=== PATIENT | male | born 1960 | race Caucasian/White ===

== ENCOUNTER 2024-03-12 04:02 | Day surgery (SDC) | payer OTHER ==
[~2024-03-12] VITALS: Ht 188 cm; Wt 95.2 kg
[2024-03-12] VITALS (200 sets, daily range): BP systolic 91–166; BP diastolic 54–93
[2024-03-12] MEDS ORDERED: ALBUTEROL SULFATE 2.5 MG VIAL IN PRN (07:30)
[2024-03-12] MEDS ORDERED: PANTOPRAZOLE SODIUM Sesquihydr 40 MG/TAB PO PRN (07:30)
[2024-03-12] MEDS ORDERED: LACTATED RINGER'S 1,000 ML IV PRN ×3 (07:30→19:00)
[2024-03-12] MEDS ORDERED: FAMOTIDINE 20 MG/TAB PO PRN (07:30)
[2024-03-12] MEDS ORDERED: diazePAM 5 MG/TAB PO PRN ×2 (07:30→08:30)
[2024-03-12] MEDS ORDERED: SCOPOLAMINE 1.5 MG DIS TD PRN (07:30)
[2024-03-12] MEDS ORDERED: cloNIDine HCL 0.1 MG/TAB PO PRN (07:30)
[2024-03-12] MEDS ORDERED: CYANOCOBALAMIN 500 MCG/TAB ( B12) PO PRN (07:30)
[2024-03-12] MEDS ORDERED: ASCORBIC ACID 4,000 MG in SODIUM CHLORIDE 0.9% 1,000 ML IV SCH (08:00)
--- NOTE | 2024-03-12 08:55 | NUR ---
Patient arrived to the ANR suite, identification and demographics confirmed. Patient to room 10, AAO and ambulatory vitals obtained, ID/allergy/fall bands placed, changed into hospital gown, procedure and timeline explained. All questions answered, patient presents no concerns at this time. Dr. Snyder telephoned with patient intake information including usage, dose, last dose/time taken and initial vital signs. Patient history and allergies reviewed with MD. Orders received for 10 mg PO Valium and 0.2 mg PO Clonidine now. Will reassess per protocol in 1.5 hours and update MD with assessment and vitals.
[2024-03-12] MEDS ORDERED: ATORVASTATIN CALCIUM 40 MG/TAB PO SCH (10:00)
[2024-03-12] MEDS ORDERED: METOPROLOL SUCCINATE 50 MG/TAB PO SCH (10:00)
[2024-03-12 10:01] LABS: BASO% 0.4 % (0-3); EOS% 1.9 % (0-8); HEMATOCRIT 41.8 % (39.0-50.0); HEMOGLOBIN 13.6 g/dl (14.0-18.0); MEAN CELL VOLUME 94.6 fL CALC (80.0-100.0); MEAN CORPUSCULAR HGB 30.8 pG CALC (26.0-32.0); MEAN CORPUSCULAR HGB CONC 32.5 g/dL CAL (32.0-36.0); MONO% 12.4 % (2-13); NEUT# 3.09 thou/uL (1.82-7.42); NEUT% 65.3 % (42-76); RED BLOOD COUNT 4.42 mill/uL (4.70-6.10); RED CELL DISTRI WIDTH 13.1 % (11.5-15.5)
[2024-03-12] MEDS ORDERED: BAYER ASPIRIN E81 MG PO (10:12)
[2024-03-12] MEDS ORDERED: TOPROL XL50 MG PO (10:13)
[2024-03-12] MEDS ORDERED: OMEPRAZOLE DR40 MG PO (10:13)
[2024-03-12] MEDS ORDERED: ATORVASTATIN CA40 MG PO (10:14)
[2024-03-12] MEDS ORDERED: ISOSORB MONO30 MG PO (10:15)
[2024-03-12 10:22] LABS: ALBUMIN 3.9 g/dL (3.2-5.0); BILIRUBIN, TOTAL 0.5 mg/dL (0.2-1.3); CREATININE 0.9 mg/dL (0.7-1.3); POTASSIUM 4.2 mmol/l (3.5-5.1); TOTAL PROTEIN 6.4 g/dL (6.3-8.2)
[2024-03-12] MEDS ORDERED: ISOSORBIDE MONONITRATE 30 MG TAB PO SCH (10:30)
[2024-03-12] MEDS ORDERED: PROPOFOL 10 MG/ML 100ML VIAL IV PRN (10:40)
[2024-03-12] MEDS ORDERED: POTASSIUM CHLORIDE 20 MEQ/100 ML BAG IV PRN (10:40)
[2024-03-12] MEDS ORDERED: ROCURONIUM BROMIDE 10 MG/ML 5ML VIAL IV PRN (10:40)
[2024-03-12] MEDS ORDERED: MAGNESIUM SULFATE HEPTAHYDRATE 100 ML IV PRN (10:40)
[2024-03-12] MEDS ORDERED: cloNIDine HCL 0.1 MG/TAB VT PRN (10:40)
[2024-03-12] MEDS ORDERED: STERILE WATER FOR IRRIGATION 1,000 ML BTL IR PRN (10:40)
[2024-03-12] MEDS ORDERED: PROPOFOL 100 ML IV PRN (10:40)
[2024-03-12] MEDS ORDERED: SUCCINYLCHOLINE CHLORIDE 20 MG/ML 10ML VIAL IV PRN (10:40)
[2024-03-12] MEDS ORDERED: MIDAZOLAM HCL 2 MG/2 ML VIAL IV PRN (10:40)
[2024-03-12] MEDS ORDERED: ONDANSETRON HCl 4 MG/2 ML SDV IV PRN ×3 (10:40→19:00)
[2024-03-12] MEDS ORDERED: OCTREOTIDE ACETATE 100 MCG/VIAL SDV SC PRN (10:40)
[2024-03-12] MEDS ORDERED: THIAMINE HCL 100 MG/ML 2ML VIAL IV PRN (10:40)
[2024-03-12] MEDS ORDERED: LIDOCAINE HCL 1% (10MG/ML) 100 MG/10 ML MDV VT PRN ×2 (10:40)
[2024-03-12] MEDS ORDERED: diazePAM 5 MG/TAB VT PRN (10:40)
[2024-03-12] MEDS ORDERED: DEXAMETHASONE SODIUM PHOSPHATE PF 10 MG/ML SDV IV PRN ×2 (10:40→19:00)
[2024-03-12] MEDS ORDERED: NALTREXONE HCL 50 MG/TAB VT PRN (10:40)
[2024-03-12] MEDS ORDERED: DiphenhydrAMINE HCL 50 MG/ML SDV IV PRN (10:40)
[2024-03-12] MEDS ORDERED: LIDOCAINE HCL 1% (10MG/ML) 100 MG/10 ML MDV IV PRN (10:40)
[2024-03-12] MEDS ORDERED: cloNIDine HYDROCHLORIDE 100 MCG/ML 10 ML INJ IV PRN (10:40)
[2024-03-12] MEDS ORDERED: PHENYLEPHRINE HCL 10 MG/ML VIAL ONE (10:49)
[2024-03-12] MEDS ORDERED: SODIUM CHLORIDE 0.9% 250 ML IV ONE (10:49)
--- NOTE | 2024-03-12 12:10 | NUR ---
Induction Note Patient to ANR procedure room. Time out performed at 1139. Patient placed on monitors, Halima hugger, bilateral wrist restraints applied for ET tube protection. Versed 5mg given IV push at 1140 Tourniquet applied to right arm Lidocaine 100mg given [id number] IV push followed by Rocoronium 10mg at 1144 IV push and held for 90 seconds. Propofol bolus of 120mg given at 1145 IV push. Succinylcholine 80mg given IV push at 1146. Smooth intubation with 7.5 ETT. Positive CO2. Positive Auscultation for air exchange. Patient placed on ventilator for spontaneous ventilation. Placed on Propofol IV drip at 1147. OG inserted. Positive air on auscultation. Positive gastric content. Stomach washed at this time. Naltrexone 50mg given via OG tube with Clonidine 0.1 mg given via OG Tube. OG clamped for 45 minutes. Will monitor patient for symptoms of withdrawal and adjust propfol accordingly.
--- NOTE | 2024-03-12 12:55 | NUR ---
OG open note OG open at this time. Gastric content draining into drainage bag. OG to drain for 45 minutes. Propofol will be titrated down based on patient.
[2024-03-12] MEDS ORDERED: METOPROLOL TARTRATE 5 MG/5 ML VIAL IV ONE (13:07)
--- NOTE | 2024-03-12 13:45 | NUR ---
OG close note Stomach washed at this time. Naltrexone 50 mg with Clonidine 0.2 mg via OG tube. OG will be clamped for 45 minutes.
--- NOTE | 2024-03-12 15:15 | NUR ---
OG close note Stomach washed at this time. Naltrexone 50 mg with Clonidine 0.2 mg via OG tube. OG will be clamped for 45 minutes.
--- NOTE | 2024-03-12 17:30 | NUR ---
OG close note Stomach washed at this time. Naltrexone 0 mg with Clonidine 0 mg via OG tube. OG will be clamped for 45 minutes.
--- NOTE | 2024-03-12 17:59 | NUR ---
Extubation note Closing medications given Benadryl 50mg IV push, Decadron 10mg IV push,Magnesium 4 grams IV, Zofran 8mg IV push, Octreotide 100mcg SC. Stomach washed out prior to extubation. Suctioned gastric content. OG removed. Patient extubated. Propofol Discontinued. Wrist restraints removed. Halima hugger Removed. See ANR Moderate sedate recovery record for further notes and assessment.
[2024-03-12] MEDS ORDERED: CLONIDINE0.1 MG PO (18:13)
[2024-03-12] MEDS ORDERED: NALTREXONE50 MG PO (18:13)
[2024-03-12] MEDS ORDERED: KLONOPIN2 MG PO (18:14)
--- NOTE | 2024-03-12 18:39 | NUR ---
Patient transferred to medical-surgical unit room 284. Report given to floor nurse at bedside. Head to toe assessment, treatment, medications, I/O, IV access reviewed with nurse. All questions answered. IVF to continue at 100 ml/hr, no adventitious breath sounds. Safety precautions in place, bed locked and in lowest position, call light in reach. Handoff of care at the time this note.
[2024-03-12] MEDS ORDERED: PROMETHAZINE HCL 25 MG in SODIUM CHLORIDE 0.9% 50 ML IV PRN (19:00)
[2024-03-12] MEDS ORDERED: HALOPERIDOL LACTATE 5 MG/ML SDV IV PRN (19:00)
[2024-03-12] MEDS ORDERED: ACETAMINOPHEN 1,000 MG/100 ML VIAL IV PRN (19:00)
[2024-03-12] MEDS ORDERED: LORazepam 2 MG/ML IV PRN ×2 (19:00)
[2024-03-12] MEDS ORDERED: PROMETHAZINE HCL 12.5 MG in SODIUM CHLORIDE 0.9% 50 ML IV PRN (19:00)
[2024-03-12] MEDS ORDERED: KETOROLAC TROMETHAMINE 30 MG/ML SDV IV PRN (19:00)
[2024-03-12] MEDS ORDERED: ACETAMINOPHEN 500 MG TAB PO PRN (19:00)
[2024-03-12] MEDS ORDERED: PATIENT' OWN MED CONTROLLED 1 EA DOSE IV PRN (21:00)
--- NOTE | 2024-03-12 22:06 | NUR ---
PT HAD ANOTHER EPISODE OF INC BM. STREET SUPERINTENDENT ASSISTED BOTH VISUAL BASIC DEVELOPER'S WITH CLEANING AND CHANGING PT, PT IS VERY DISORIENTED, WILL NOT FOLLOW COMMANDS, AND BECAME COMBATIVE AND STARTED HOLLERING UNCOMPREHENSIVE WORDS. ONCE PT WAS CLEANED AND REPOSITONED INTO BED, STREET SUPERINTENDENT ADMINISTERED MEDICATION PER EMAR FOR AGITATION. PT LAYING IN BED SEMI FOWELRS, NASAL CANNULA IN PLACE. BED ALARM ON AND SAFETY PRECAUTIONS IN PLACE.
[2024-03-12] MEDS ORDERED: cloNIDine HCL 0.1 MG/TAB PO SCH (23:00)
[2024-03-12] MEDS ORDERED: clonazePAM 1 MG/TAB PO PRN (23:00)
--- NOTE | 2024-03-13 00:31 | NUR ---
PT WAS UNABLE TO TAKE @2300 MEDICATIONS PER EMAR. UNABLE TO AROUSE PT AND ORIENT TO CAPACITY OF FOLLOWING COMMANDS. PT UPPER LUNG SOUNDS CRACKLE AND WET SOUNDING. PT ON 3L O2 NC AND DESATTING TO <85%. RESPIRATORY THERAPY WAS NOTIFIED, DID COME AND ASSESS PT. ORAL SUCTION PERFORMED TO HELP CLEAR SECRETIONS AND PT PLACED ON HIGH FLOW NASAL CANNULA AT 5L O2 PER RESIRATORY. PT WAS ABLE TO AROUSE AFTER ORAL SUCTION BUT WOULD NOT OPEN EYES OR FOLLOW COMMANDS, STILL PRESENTED VERY DISORIENTED. ENCOUERAGED TO DEEP COUGH BUT UNABLE TO AT THIS TIME. REPOSITIONED PT HIGH FOWLERS IN BED. IV SITE INTACT WITH FLUIDS RUNNING. BED ALARM ON AND SAFETY PRECAUTIONS IN PLACE.
[2024-03-13 03:59] VITALS: BP 162/91
[2024-03-13] MEDS ORDERED: cloNIDine HCL 0.1 MG/TAB PO PRN ×2 (04:00→16:05)
[2024-03-13] MEDS ORDERED: clonazePAM 1 MG/TAB PO PRN ×3 (04:00→16:05)
[2024-03-13] MEDS ORDERED: NALTREXONE HCL 50 MG/TAB PO SCH (04:00)
--- NOTE | 2024-03-13 04:15 | NUR ---
PT MORE ALERT AND ABLE TO FOLLOW COMMANDS. PT ABLE TO GIVE VERBAL RESPONSES WITH GARBLED SPEECH. 0400 MEDICATIONS ADMINISTERED PER EMAR AND PT WAS ABLE TO TAKE THEM WITH NO PROBLEM. PT C/O BACK PAIN AND NAUSEA. MEDICATION ADMINSITERED PER EMAR FOR PAIN AND NAUSEA. REPOSITIONED PT IN BED. VSS. NO S/S OF DISTRESS. BED ALARM ON AND SAFEFTY PRECAUTIONS IN PLACE.
[2024-03-13 05:03] LABS: BASO% 0.1 % (0-3); HEMATOCRIT 47.2 % (39.0-50.0); IMMATURE GRANULOCYTES 0.1 % (0.0-5.0); LYMPH% 4.8 % (15-41); MEAN CELL VOLUME 93.3 fL CALC (80.0-100.0); MEAN CORPUSCULAR HGB 31.4 pG CALC (26.0-32.0); MEAN CORPUSCULAR HGB CONC 33.7 g/dL CAL (32.0-36.0); MONO% 3.9 % (2-13); NEUT# 9.64 thou/uL (1.82-7.42); NEUT% 91.1 % (42-76); RED BLOOD COUNT 5.06 mill/uL (4.70-6.10); RED CELL DISTRI WIDTH 12.9 % (11.5-15.5)
[2024-03-13 05:05] LABS: HEMOGLOBIN 15.9 g/dl (14.0-18.0)
[2024-03-13 05:13] LABS: ALBUMIN 4.1 g/dL (3.2-5.0); CREATININE 0.8 mg/dL (0.7-1.3); MAGNESIUM 2.6 mg/dL (1.6-2.3); POTASSIUM 4.3 mmol/l (3.5-5.1); TOTAL PROTEIN 6.5 g/dL (6.3-8.2)
--- NOTE | 2024-03-13 06:12 | NUR ---
RESPIRATORY THERAPY DECREASED PT O2 TO 3L O2 HF NC.
[2024-03-13] MEDS ORDERED: ACETAMINOPHEN 325 MG/TAB PO SCH (08:00)
[2024-03-13] MEDS ORDERED: PANTOPRAZOLE SODIUM Sesquihydr 40 MG/TAB PO SCH (08:00)
[2024-03-13] MEDS ORDERED: cloNIDine HCL 0.1 MG/TAB PO SCH (08:00)
--- NOTE | 2024-03-13 08:50 | NUR ---
patient in bed moving from side to side; patient drowsy and not able to speak clearly at this time; patient mubbling words under breath unable to hear him clearly, assisted patient with urinal, had 500cc of clear yellow urine noticed; rubbed patient back due to visual signs of pain, and not wanting to lay on his back; pateint tolerated his medication admins; magnesium and potassium lab levels was within reach, call lightw ithin reach,verbalized understanding on how to use, personal items in ANR locker; bed in lowest postion; bed alarm activated
[2024-03-13] MEDS ORDERED: Cholecalciferol 2,000 UNIT/TAB PO PRN (09:00)
[2024-03-13] MEDS ORDERED: ACETAMINOPHEN 500 MG TAB PO PRN (09:00)
[2024-03-13] MEDS ORDERED: MAGNESIUM OXIDE 400 MG/TAB PO PRN (09:00)
[2024-03-13] MEDS ORDERED: ASPIRIN EC 81 MG/TAB PO SCH (09:00)
--- NOTE | 2024-03-13 10:30 | NUR ---
patient to get out of bed; sat patient on side of bed and assited with the urinal; denied any n/d/v at this time; just pain in his back, after several mins on his side ,patient requested to lay back down in bed; call light within reach, bed in lowest postion; bed alarm activated; safety measures in place
--- NOTE | 2024-03-13 11:02 | NUR ---
patient attempting to get out of bed; assited patient to sit on side of bed, patient complaint of back pain, writter rubbed patient back, offered heat patch patient , patient refused, informed Dr. Ramires awaiting new orders
--- NOTE | 2024-03-13 12:06 | NUR ---
ryan in bed; a/o x3; ; states his back hurts medicated patient per EMAR; deneied any n/d/v at this time; patient laying on his left side; scientific technical writer within reach, call light within reach,
[2024-03-13] MEDS ORDERED: LIDOCAINE 4 % PATCH TD SCH (12:30)
[2024-03-13] MEDS ORDERED: KETOROLAC TROMETHAMINE 15 MG/ML SDV IV SCH (12:30)
--- NOTE | 2024-03-13 12:32 | NUR ---
medicated patient with Toradol 15mg, lidocaine patch and ofirmev 1000mg per Dr. Ramires orders
[2024-03-13] MEDS ORDERED: HALOPERIDOL LACTATE 5 MG/ML SDV IV SCH (15:30)
--- NOTE | 2024-03-13 16:00 | NUR ---
patient attempting to get out bed; not understanding what is been told to patient; attempting to educate patient to stay in bed; unable to understand; called Dr. Foy, ordered haldol 5mg iv, patient still not resting; patient was sat on side of bed and attempting to get up, unable to stand; patient kicking and hitting and attempting to spit on people when redircting and attempting to get up
--- NOTE | 2024-03-13 17:00 | NUR ---
patient still attempting to get up out of bed; patient attempting to kick teletypewriter installer and ASSEMBLER FITTER when trying to get his legs back in bed; yelling and screaming, none of his words are making any sense; saftey measures in measures; teletypewriter installer in room with patient
--- NOTE | 2024-03-13 17:52 | NUR ---
patient still attempting to get out of bed; typewriters functional tester at bed side; patient combative when trying to get him back in bed; combative when trying to redirect his feet back in bed; safety measures in place; patient removed iv in RW
[2024-03-13] MEDS ORDERED: HALOPERIDOL LACTATE 5 MG/ML SDV IV PRN (18:20)
--- NOTE | 2024-03-13 21:04 | NUR ---
PT VERY AGITATED AND RESTLESS AT THIS TIME. PT CONTINUES TOSSING AND TURNING IN BED, TRYING TO CLIMB OVER BED RAILINGS. BECOMES COMBATIVE WHEN REDIRECTED BY STAFF TO STAY IN BED AND REST. PT CONTINUES TO CUSS AT STAFF AND STATE "ILL MAKE YOU REGRET THIS" WHEN TRYING TO REORIENT AND ENCOURAGE REST. MEDICAITON PER EMAR HAS BEEN ADMINISTERED FOR AGITATION. SITTER AT BED SIDE. BED ALARM ON AND SAFETY PRECAUTIONS IN PLACE.
--- NOTE | 2024-03-13 23:28 | NUR ---
PT WAS TRYING TO CLIMB OVER BEDSIDE RAILS AND YELLING "I HAVE TO GO TO THE BATHROOM" DIRECTOR CORPORATE SECURITY AND TWO CNAS ASSISTED WITH STANDING PT UP FROM BED, PT WOULD NOT KEEP EYES OPEN, GAIT VERY UNSTEADY AND SHAKY. WHEN STANDING PT, HE BEGAN HAVING BOWEL MOVEMENT THAT GOT ONTO BED AND FLOOR. PT BECAME AGITATED AND COMBATIVE WHEN TRYING TO DIRECT HIM ONTO BSC, WAS PULLING AGAINST THE STAFF TRYING TO KEEP HIM UPRIGHT. AFTER FINALLY GETTING PT TO SIT ON BSC, PT FINISHED BM. DIRECTOR CORPORATE SECURITY AND STAFF CHANGED BED LINEN, CLEANED UP FLOOR AND PT. ASSISTED PT BACK INTO BED, WHEN PT LAID DOWN, PT BEGAN KICKING BEDSIDE RAILINGS AND YELLING "IT'S THE DEFIBRILLATOR" REORIENTING AND REDIRECT PT HAS BEEN UNSUCCEFUL AT THIS TIME DUE TO PT MENTAL STATUS. MEDICATION FOR AGITATION WAS ADMINSITERED PER EMAR. [facility] BED ALARM ON AND SAFETY PRECAUTIONS IN PLACE.
[2024-03-14] VITALS: BP 131/49
--- NOTE | 2024-03-14 01:52 | NUR ---
PT HAS BEEN IN AND OUT OF RESTING. STILL PRESENTS RESTLESS, TOSSING AND TURNING IN BED AND DOES STILL CONTINUE TO CLIMB OVER RAILINGS. HOWEVER PT HAS PRESENTED BETTER UNDERSTANDING AT FOLLOWING REDIRECTION AND ORIENTATION. PT WAS ABLE TO MAKE NEEDS KNOWN TO VOID, MARKETING COMMUNICATIONS COORDINATOR AND HEAD OF INTEGRATED [employer] ASSISTED WITH PT STANDING AND PIVOTING TO USE BSS. GAIT UNCHANGED. VOIDED WITHOUT DIFFICULTY. ASSISTED BACK INTO BED. PT WAS OFFERED GATORADE AND TOLERATED WELL. DENIES ANY N/V. PT IS CURRENTLY LAYING IN BED ON RT SIDE. MARKETING COMMUNICATIONS COORDINATOR AT BEDSIDE. BED ALARM ON AND SAFETY PRECAUTIONS IN PLACE.
--- NOTE | 2024-03-14 02:42 | NUR ---
PT WAS STILL PRESENTING RESTLESS. COMMERCIAL OCEAN CLAMMER OFFERED PT A SHOWER AFTER ASSISTING HIM TO BATHROOM. COMMERCIAL OCEAN CLAMMER AND HAMMER ADJUSTER ASSISTED PT WITH SHOWER AND THEN GETTING BACK INTO BED. PT TOLERATED WELL. PT GAIT STILL UNSTEADY BUT WAS ABLE TO KEEP EYES OPEN AND FOLLOW COMMAND TO KEEP HEAD UP. PT STATED "FEELING ALOT BETTER" AFTER BEING REPOSITIONED IN BED SEMI FOWLERS. PT IS CURRENTLY RESTING AT THIS TIME. COMMERCIAL OCEAN CLAMMER AT BEDSIDE. BED ALARM ON AND SAFETY PRECAUTIONS IN PLACE.
--- NOTE | 2024-03-14 03:34 | NUR ---
PT IS AWAKE AND BACK TO PRESENTING RESTLESS AND AGITATED. KICKING AT THE BED RAILS AND CUSSING AT STAFF "GET OUT MY FUCKING WAY, SHUT UP" WHEN REDIRECTING BACK INTO BED AND MOVING LEGS FROM INBETWEEN BED RAILS. ETCHER PRINTED CIRCUIT BOARDS AT BEDSIDE. BED ALARM ON AND SAFETY PRECAUTIONS IN PLACE.
--- NOTE | 2024-03-14 04:18 | NUR ---
PT C/O PAIN IN BACK. OFFERED PT TYLENOL ORDERED IN EMAR. PT STATED "OH YOU'RE REAL HELP. I WANT OXY" REMINDED PT OF PROCEDURE HE WENT THROUGH AND NON OPOID PAIN MANAGEMENT. OFFERED HOT PACK OR ICE PACK FOR COMFORT BUT PT DENIED. PT THEN STATED HE NEEDED TO USE THE BATHROOM. SEVERITY OF ILLNESS COORDINATOR AND HIGHWAY DESIGN ENGINEER ASSISTED PT TO BATHROOM, GAIT UNCHANGED. VOIDED WITHOUT DIFFICULTT AND HAD BM. ASSISTED BACK INTO BED. ENCOURAGED TO GET REST. SEVERITY OF ILLNESS COORDINATOR AT BEDSIDE, BED ALARM ON AND SAFETY PRECAUTIONS IN PLACE.
[2024-03-14 05:07] LABS: HEMATOCRIT 44.4 % (39.0-50.0); HEMOGLOBIN 14.8 g/dl (14.0-18.0); MEAN CELL VOLUME 93.3 fL CALC (80.0-100.0); MEAN CORPUSCULAR HGB 31.1 pG CALC (26.0-32.0); MEAN CORPUSCULAR HGB CONC 33.3 g/dL CAL (32.0-36.0); RED BLOOD COUNT 4.76 mill/uL (4.70-6.10)
[2024-03-14 05:22] LABS: ALBUMIN 3.5 g/dL (3.2-5.0); CREATININE 0.9 mg/dL (0.7-1.3); MAGNESIUM 2.4 mg/dL (1.6-2.3); TOTAL PROTEIN 5.7 g/dL (6.3-8.2)
[2024-03-14 05:24] LABS: POTASSIUM 3.4 mmol/l (3.5-5.1)
--- NOTE | 2024-03-14 05:33 | NUR ---
PT REQUESTING TO USE BATHROOM, ASSISTANT STORE MANAGER TRAINEE AND FEED MILLER ASSISTED PT TO BATHROOM. PT SHUFFLING GAIT BUT KEPT EYES OPEN AND HEAD UP. PT HAD MUTIPLE EPISODES OF WATERY BM. PT RECTUM DOES PRESENT RED AND IRRITATED. APPLIED BARRIER CREAM. ASSISTED PT BACK INTO BED. NEW IV STARTED IN RH, IVF RUNNING PER EMAR. PT REQUESTING DRIN, FLUIDS OFFERED. PT DENIES ANY N/V AT THIS TIME. PRESENT MORE CALM AND A/OX3. PT STATED "FEELING BETTER" ENCOURAGED PT TO GET SOME MUCH NEEDED REST TO HELP RECOVERY. PT LAYING IN BED SEMI FOWLERS. ASSISTANT STORE MANAGER TRAINEE AT BEDSIDE. BED ALARM ON AND SAFETY PRECAUTIONS IN PLACE.
--- NOTE | 2024-03-14 06:02 | NUR ---
PT BECAME RESTLESS IN BED, OFFERED TO SIT UP IN RECLINER. GUITAR MAKER HAND ASSISTED PT INTO CHAIR WITH LEGS ELEVATED. DURING TRANSFER, PT IV IN DISLODGE. REMOVED WITH CATHETER INTACT. NEW IV STARTED IN [facility]. GUITAR MAKER HAND AT BEDSIDE. SAFETY PRECAUTIONS IN PLACE.
[2024-03-14 08:11] VITALS: BP 148/61
--- NOTE | 2024-03-14 08:20 | NUR ---
PATEINT ALERT AND WALKING IN HALLWAY; DENIED ANY PAIN; DENEID ANY N/D/V AT THIS TIME; ENCOURAGED PATIENT TO TRY TO EAT BREAKFAST; INFORMED PATEINT OF POC; PATEINT TOLERATED MEDICATION ADMIN; UNABLE TO RUN FLUIDS DUE TO PATIENT ATTEMPTING TO GET UP AND WALK EVERY FEW MINS; NO S/S OF DISTRESS AT THIS TIME; PATIENT STATING TAHT "IM READY TO GO HOME" INFORMED PATIENT THAT THE DOCTOR NEEDS TO SEE HIM AND ENSURE ITS SAFE TO HOME, CALL LIGHT WITHIN REACH, BED IN LOWEST POSTION; PERSONAL ITEMS IN ANR LOCKER; PUMPER HAND WITHIN REACH
[2024-03-14] MEDS ORDERED: FAMOTIDINE 20 MG/TAB PO SCH (08:30)
[2024-03-14] MEDS ORDERED: POTASSIUM CHLORIDE 20 MEQ/TAB PO SCH (08:30)
[2024-03-14] MEDS ORDERED: NALTREXONE HCL 50 MG/TAB PO SCH (09:00)
--- NOTE | 2024-03-14 10:13 | NUR ---
PATIENT WALKING AROUND IN ROOM WITH WALKER ECONOMETRICIAN WITHIN REACH, PATIENT RECENTLY JUST SHOWERED WITH NO ISSUES; SAFTEY MEASURES IN PLACE
--- NOTE | 2024-03-14 12:59 | NUR ---
PATEINT AWAKE AND TOOK SHOWER WITH NO ISSUES; PATIENT ABULATING WITH NO ISSUES; DENEID ANY PAIN; DENIED ANY N/D/V AT THIS TIME; STATES HE JUST READY TO GO HOME; PERONSAL ITEMS WITHIN REACH, PATEINT GETTING DRESSED IN HER CLOTEHS FROM HOME; ROOM AIR; BREATHING UNLABORED AND EVEN; RASH ON ABD AREA AND REDDESS ON BUTTOCK, APPLIED BARRIAR CREAM TO THOSE AREAS; DR. ROJAS SEEN PATIENT AND AGREED FOR DISCHARGE, ADMIN PATIENT DISCHARGE MEDICATION WITH NO ISSUES, CALL LIGHT WITHIN REACH, VERABLIZED UNDERSTANDING ON HOW TO USE, BED IN [facility]
== END 2024-03-14 13:43 | disposition home or self-care (01) | DRG 897 ==
LOC: ANR 04:02 → MS2 04:02 → ANR 07:00
PROVIDERS: ATTEND Anesthesiology
DX: F11.20 Opioid dependence, uncomplicated (principal)
CPT/HCPCS: J0131; J1100; J2060; J2354; J3475